=== PATIENT | female | born 1970 | race Two or more races ===

== ENCOUNTER → 2020-08-21 | Outpatient (CLI) | payer OTHER ==
[~2020-08-21] MED LIST: DICLOFENAC SOD100 MG PO; INDERAL LA80 MG; INDERAL PO; NORFLEX100MG PO
== END | disposition home or self-care (01) ==
LOC: RAD 09:32
PROVIDERS: ATTEND Physical Medicine & Rehabilitation
DX: M54.5 Low back pain (principal)